=== PATIENT | female | born 1990 | race Asian ===

== ENCOUNTER 2017-09-26 10:59 | Emergency (ER) | payer OTHER ==
[2017-09-26 12:06] LABS: ABS Basophils 0 10^3/ul (0-0.2); ABS Eosinophils 0.1 10^3/ul (0-0.6); ABS Lymphocytes 1.3 10^3/ul (1.0-4.8); ABS Monocytes 0.7 10^3/ul (0-0.8); ABS Neutrophils 3.7 10^3/ul (1.5-7.7); ABS Nucleated RBC 0 10^3/ul; Eosinophil % 1.5 % (0-6); Hematocrit 42 % (35-47); Mean Corpuscular HGB Conc 33 g/dl (31-36); Mean Corpuscular Hemoglobin 29 pg (27-31); Mean Corpuscular Volume 88 fL (80-97); Mean Platelet Volume 8 um3 (7.4-10.4); Nucleated Red Blood Cells % 0.1; Platelet Count 255 10^3/ul (150-450); Red Blood Count 4.76 10^6/ul (4.0-5.4); Red Cell Distribution Width 13 % (10.5-15); White Blood Count 5.8 10^3/ul (3.5-10.8)
[2017-09-26 12:20] LABS: EGFR Non-African American 109.1 (>60)
[2017-09-26 12:45] LABS: Urine Appearance Cloudy; Urine Blood 1+ (Negative); Urine Color Yellow; Urine Ketones Negative (Negative); Urine Protein Negative (Negative); Urine Specific Gravity 1.017 (1.010-1.030); Urine Urobilinogen Negative (Negative)
[2017-09-26 13:21] VITALS: BP 104/74
--- NOTE | 2017-09-27 03:43 | ED ---
Sid Jennings Stephanie, scribed for Siomara Ballesteros MD on 09/26/17 at 1150 . Abdominal Pain/Female - HPI Summary HPI Summary: The pt is a 27 y/o F presenting to the ED with c/o intermittent umbilical pain that began at 08:00 on 09/24/17. Symptoms include diarrhea (began this morning) . The pt denies N/V and dysuria. The pt reports that on 09/24/17 and 09/25/17, the pain was constant and became intermittent today. The pain is described as a sharp pain. The pain is rated as a 6 in severity and lasts about 6 minutes at a time. The pain does not radiate. Aggravating factors include movement and walking, prior to and after eating. Alleviating factors include sleeping. The pt states she has not been eating regularly since classes began. The pt states she ate hot chicken tenders and ice cream at the same time on 09/23/17. - History of Current Complaint Chief Complaint: EDAbdPain Stated Complaint: ABD PAIN Time Seen by Provider: 09/26/17 11:40 Hx Obtained From: Patient Onset/Duration: Gradual Onset, Lasting Days - 2, Still Present Timing: Minutes - 6 Severity Currently: Mild Pain Intensity: 4 Pain Scale Used: 0-10 Numeric Location: Umbilical Radiates: No Character: Sharp Aggravating Factor(s): Food, Movement Alleviating Factor(s): Other: - sleep Associated Signs and Symptoms: Positive: Diarrhea - 1x. Negative: Nausea, Vomiting Allergies/Adverse Reactions: Allergies Allergy/AdvReac Type Severity Reaction Status Date / Time alcohol Allergy Rash And Verified 09/26/17 11:05 Itching PMH/Surg Hx/FS Hx/Imm Hx Previously Healthy: Yes - The pt denies any past medical hx. Sensory History: Denies: Hx Legally Blind EENT History: Denies: Hx Deafness - Surgical History Surgery Procedure, Year, and Place: NONE Infectious Disease History: No Infectious Disease History: Denies: Traveled Outside the [place] in Last 30 Days - Family History Known Family History: Positive: Hypertension, Diabetes, Other - stomach cancer, - Social History Occupation: Student Lives: Dormitory/Roommates Alcohol Use: None Substance Use Type: Reports: None Smoking Status (MU): Never Smoked Tobacco Review of Systems Negative: Fever Positive: Abdominal Pain, Diarrhea. Negative: Vomiting, Nausea Negative: dysuria All Other Systems Reviewed And Are Negative: Yes Physical Exam - Summary Physical Exam Summary: Appearance: Ill-appearing, moderate pain distress, Well-nourished Skin: Warm, color reflects adequate perfusion Head: Normal Head/Face inspection Eyes: Conjunctiva clear ENT: Normal inspection Neck: Supple, no nodes, no JVD. Respiratory: Lungs clear, Normal breath sounds, no respiratory distress Cardio: RRR, No murmur, pulses normal, brisk capillary refill Abdomen: minimal tenderness over periumbilical area, no mcburney's point tenderness Bowel sounds: present Musculoskeletal: Strength Intact/ ROM intact. No calf tenderness. No edema. Neuro: Alert, muscle tone normal, facial symmetry, speech normal, sensory/motor intact Psychological: Normal Triage Information Reviewed: Yes Vital Signs On Initial Exam: Initial Vitals Temp Pulse Resp BP Pulse Ox 98.1 F 78 16 117/90 98 09/26/17 11:02 09/26/17 11:02 09/26/17 11:02 09/26/17 11:02 09/26/17 11:02 Vital Signs Reviewed: Yes Diagnostics - Vital Signs Vital Signs Temp Pulse Resp BP Pulse Ox 09/26/17 11:44 74 98 09/26/17 11:42 112/87 09/26/17 11:02 98.1 F 78 16 117/90 98 - Laboratory Result Diagrams: 09/26/17 11:53 09/26/17 11:53 Lab Statement: Any lab studies that have been ordered have been reviewed, and results considered in the medical decision making process. Re-Evaluation - Re-Evaluation First Eval Re-Evaluation Time: 13:12 Change: Unchanged - ED physician discussed unremarkable lab results with the pt. The pt agrees with dischage plan. Second Eval Re-Evaluation Time: 13:18 Change: Unchanged - ED physician re-evalated the pt's abdomen. There is mild diffuse tenderness in the center of abdomen. No McBurneys point tenderness, no guarding, no rebound. Abdominal Pain Fem Course/Dx - Diagnoses Provider Diagnoses: Elevated blood pressure reading without diagnosis of hypertension, Abdominal pain Discharge - Discharge Plan Condition: Stable Disposition: HOME Patient Education Materials: Abdominal Pain (ED) Forms: *School Release Referrals: [facility] - [facility] SCHAEFFER [Primary Care Provider] - 2 Days Additional Instructions: Urine culture is pending on you. We will contact you if you need further treatment based on the results. RETURN TO ER FOR ANY NEW OR WORSENING SYMPTOMS The documentation as recorded by the Sid viera Stephanie accurately reflects the service I personally performed and the decisions made by me, Siomara Ballesteros MD.
== END 2017-09-26 13:24 | disposition home or self-care (01) ==
LOC: ED 10:59
DX: R10.9 Unspecified abdominal pain (principal); R03.0 Elevated blood-pressure reading, without diagnosis of hypertension
CPT/HCPCS: 36415; 80053; 81003; 81015; 83605; 83690; 84702; 85025; 86140; 87086; 99282